=== PATIENT | male | born 1940 | race Caucasian/White ===

== ENCOUNTER 2016-05-08 20:11 | Emergency (ER) | payer MEDICARE, OTHER ==
[2016-05-08 20:42] LABS: BASOPHIL 0.5 % (0-2); EOSINOPHIL 4.3 % (0-7); HGB 15.1 g/dl (13.2-18.0); LYMPHOCYTE 27.8 % (15-48); MCH 29.3 pg (25.0-31.0); MCHC 34.3 g/dL (32.0-36.0); MCV 85.3 fL (78.0-100.0); MONOCYTE 17.9 % (0-12); MPV 10.5 fL (6.0-9.5); NEUTROPHIL 49.5 % (41-80); PLT 256 K/uL (150-400); RBC 5.16 M/uL (4.70-6.00); WBC 9.7 K/uL (4.0-10.5)
[2016-05-08 20:53] LABS: LACTIC ACID 2.2 mmol/L (0.5-2.2)
[2016-05-08 20:54] LABS: ALBUMIN 4.5 g/dL (3.4-4.8); BILIRUBIN - TOTAL 0.5 mg/dL (0.1-1.0); CREATININE 1.5 mg/dL (0.7-1.2); POTASSIUM 4.3 mmol/L (3.5-5.1); TOTAL PROTEIN 7.5 g/dL (6.4-8.3)
[2016-05-08 23:08] LABS: BILIRUBIN NEGATIVE (NEGATIVE); BLOOD NEGATIVE Ery/uL (NEGATIVE); CLARITY CLEAR (CLEAR); COLOR YELLOW (YELLOW); GLUCOSE (U) NORMAL (NORMAL); KETONE (U) NEGATIVE (NEGATIVE); LEUKOCYTES NEGATIVE Leu/uL (NEGATIVE); NITRITE NEGATIVE (NEGATIVE); PROTEIN NEGATIVE (NEGATIVE); SPECIFIC GRAVITY 1.025 (1.001-1.030); UROBILINOGEN 0.2 mg/dL (0.2-1.0); pH 5.5 (5.0-9.0)
== END 2016-05-09 00:32 | disposition home or self-care (01) ==
LOC: FER 20:11
PROVIDERS: Nurse Practitioner Family
DX: M94.0 Chondrocostal junction syndrome [Tietze] (principal); R10.9 Unspecified abdominal pain; I10 Essential (primary) hypertension; E11.9 Type 2 diabetes mellitus without complications; Z79.4 Long term (current) use of insulin; Z79.899 Other long term (current) drug therapy
CPT/HCPCS: 36415; 80053; 81003; 82150; 82565; 83605; 83690; 83880; 84520; 85025; 85379; A9579; J1170; J1885; J2405; Q9967

== ENCOUNTER → 2020-08-14 | Day surgery (SDC) | payer MEDICARE, OTHER ==
[~2020-08-14] VITALS: Ht 180 cm; Wt 122.5 kg
[~2020-08-14] MED LIST: AMLODIPINE BESYL5 MG PO; ANTIVERT25 MG PO; ASPIRIN325 MG PO; BUSPIRONE HCL10 MG PO; CATAPRES0.1 MG PO; CHLORTHALIDONE25 MG PO; COLESTID 1GM TAB1 GM PO; COZAAR100 MG PO; FINACEA50 G1 TOP; LEVEMIR VI100 UNITS/ SC; NOVOLOG VI100 UNIT/1 SC; PERCOCET 7.5/321 TAB PO; PLAQUENIL200 MG PO; TOLMETIN SODIU400 MG PO; VITAMIN E1000 UNI1 PO
[2020-08-14 08:46] LABS: HCT 43.1 % (42.0-52.0); MCHC 34.8 g/dL (32.0-36.0); MPV 10.1 fL (6.0-9.5); RBC 4.84 M/uL (4.70-6.00); RDW 13.4 % (11.5-14.0); WBC 8.9 K/uL (4.0-10.5)
[2020-08-14 09:01] LABS: CREATININE 1.39 mg/dL (0.67-1.17); POTASSIUM 4.4 mmol/L (3.5-5.1)
== END | disposition home or self-care (01) ==
LOC: FAS 08:09
PROVIDERS: Legal Medicine
DX: M75.122 Complete rotator cuff tear or rupture of left shoulder, not specified as traumatic (principal); M19.012 Primary osteoarthritis, left shoulder; M17.11 Unilateral primary osteoarthritis, right knee; K74.60 Unspecified cirrhosis of liver; E11.9 Type 2 diabetes mellitus without complications; E66.01 Morbid (severe) obesity due to excess calories; Z68.37 Body mass index [BMI] 37.0-37.9, adult; Z79.4 Long term (current) use of insulin; Z96.652 Presence of left artificial knee joint; I10 Essential (primary) hypertension; L93.0 Discoid lupus erythematosus; Z87.891 Personal history of nicotine dependence; M94.212 Chondromalacia, left shoulder; Z96.611 Presence of right artificial shoulder joint; Z88.1 Allergy status to other antibiotic agents
CPT/HCPCS: 36415; 80048; C1713; J0171; J0690; J1100; J2250; J2405; J2704; J2795; J3010; J7120